=== PATIENT | male | born 1985 | race Caucasian/White ===

== ENCOUNTER 2017-11-11 06:53 | Day surgery (SDC) | payer MEDICAID ==
[~2017-11-11 06:53] MED LIST: Lactated Ringers 1,000 ML IV SCH; Lidocaine 1%/Sod Bicarbonate in NS 8.4% 1 ML Syringe IDERM PRN; Sodium Chloride 0.9% 10 ML Syringe FLUSH PRN
--- NOTE | 2017-11-11 07:25 | PCM.PREANE ---
Preanesthetic Assessment - Anesthesia/Transfusion/Family Hx Anesthesia History: Prior Anesthesia Without Reaction Family History of Anesthesia Reaction: No Transfusion History: No Prior Transfusion(s) - Review of Systems General: No Symptoms Pulmonary: No Symptoms Cardiovascular: No Symptoms Gastrointestinal: No Symptoms Neurological: Seizure (2003 last time) - Physical Assessment NPO Status Date: 11/10/17 NPO Status Time: 00:00 Pulse: 68 O2 Sat by Pulse Oximetry: 100 Respiratory Rate: 16 Blood Pressure: 136/77 Temperature: 36.6 C Height: 1.78 m Weight: 69.354 kg ASA Class: 2 Mental Status: Alert & Oriented x3 Dentition: Reports: Normal Dentition Thyro-Mental Finger Breadths: 3 Mouth Opening Finger Breadths: 3 ROM/Head Extension: Limited/Partial Lungs: Clear to Auscultation, Normal Respiratory Effort Cardiovascular: Regular Rate, Regular Rhythm - Allergies Allergies/Adverse Reactions: Allergies Allergy/AdvReac Type Severity Reaction Status Date / Time No Known Allergies Allergy Verified 11/10/17 14:45 - Blood Blood Available: No Product(s) Available: None - Anesthesia Plan Pre-Op Medication Ordered: None - Acknowledgements Anesthesia Type Planned: MAC Pt an Appropriate Candidate for the Planned Anesthesia: Yes Alternatives and Risks of Anesthesia Discussed w Pt/Guardian: Yes Pt/Guardian Understands and Agrees with Anesthesia Plan: Yes PreAnesthesia Questionnaire Cardiovascular History: Reports: None Respiratory History: Reports: None Gastrointestinal History: Reports: GERD, Other (See Below) Other Gastrointestinal History: dysphagia Genitourinary History: Reports: Urinary Incontinence [employer] History: Reports: None Musculoskeletal History: Reports: None Neurological History: Reports: Seizure, Other (See Below) Other Neuro History: organic brain syndrome, cervical dysphagia Psychiatric History: Reports: None Endocrine/Metabolic History: Reports: None Hematologic History: Reports: None Immunologic History: Reports: None Oncologic (Cancer) History: Reports: None Dermatologic History: Reports: None - Past Surgical History Head Surgeries/Procedures: Reports: None HEENT Surgical History: Reports: Myringotomy w Tube(s), Oral Surgery Cardiovascular Surgical History: Reports: None Respiratory Surgical History: Reports: None GI Surgical History: Reports: None Female Surgical History: Reports: None Male Surgical History: Reports: None Endocrine Surgical History: Reports: None Neurological Surgical History: Reports: None Musculoskeletal Surgical History: Reports: None Oncologic Surgical History: Reports: None - SUBSTANCE USE Smoking Status *Q: Never Smoker Recreational Drug Use History: No - HOME MEDS Home Medications: Home Meds Calcium Citrate Liquid 30 ml PO DAILY 11/10/17 [History] Cyanocobalamin (Vitamin B-12) [Vitamin B-12] 1,000 mcg SQ ASDIRECTED 11/10/17 [ History] Divalproex Sodium [Depakote Sprinkle] 125 mg PO DAILY 11/10/17 [History] Sertraline HCl 2.5 ml PO DAILY 11/10/17 [History] - CURRENT (IN HOUSE) MEDS Current Meds: Current Medications Lactated Ringer's (Ringers, Lactated) 1,000 mls @ 125 mls/hr IV ASDIRECTED HUNTER Stop: 11/11/17 23:00 Lidocaine/Sodium Bicarbonate (Buffered Lidocaine 1% In Ns 8.4%) 0.25 ml IDERM ONETIME PRN PRN Reason: Prior to IV Start Stop: 11/11/17 18:00 Sodium Chloride (Saline Flush) 10 ml FLUSH ASDIRECTED PRN PRN Reason: Keep Vein Open Stop: 11/11/17 18:00
[2017-11-11] MEDS ORDERED: Propofol 200 MG/20 ML SDV ONE (07:38)
[2017-11-11] MEDS ORDERED: Midazolam 1 MG/ML 2 ML SDV ONE (07:38)
[2017-11-11] MEDS ORDERED: fentaNYL 100 MCG/2 ML SDV ONE (07:38)
[2017-11-11] MEDS ORDERED: Lidocaine 1% 4 ML ONE (07:41)
--- NOTE | 2017-11-11 08:19 | PCM.OPNOTE ---
- General Post-Op/Procedure Note Date of Surgery/Procedure: 11/11/17 Operative Procedure(s): Esophagogastroduodenoscopy with biopsy Findings: Tight esophageal stricture likely reflux related at 25 cm from the anal verge. Pre Op Diagnosis: Dysphagia Post-Op Diagnosis: Distal esophageal stricture Anesthesia Technique: MAC, Moderate Sedation Primary Surgeon: Nicanor Aguayo Pathology: Esophageal biopsy 1 EBL in mLs: 0 Complications: None Condition: Good Free Text/Narrative:: After adequate IV sedation and analgesia was obtained with monitoring the patient was placed on his left side. Through a bite-block lubricated upper endoscope was inserted into the esophagus and advanced towards the stomach. At 25 cm from the incisors there was a tight circumferential stricture. This would not allow passage of the adult scope. I then switched to the pediatric upper endoscope and the stricture was too tight to allow for passage of the pediatric scope. There was some scope trauma on the attempt. I took one biopsy for histopathologic evaluation. The proximal esophagus above the stricture had no stasis changes. On extubation the vocal cords were visualized and were grossly normal. [employer] Legal Assistant photographs were taken for the patient and for the medical record.
--- NOTE | 2017-11-11 10:09 | PCM48HPAN ---
Post Anesthesia Note - EVALUATION WITHIN 48HRS OF ANESTHETIC Vital Signs in Normal Range: Yes Patient Participated in Evaluation: Yes Respiratory Function Stable: Yes Airway Patent: Yes Cardiovascular Function Stable: Yes Hydration Status Stable: Yes Pain Control Satisfactory: Yes Nausea and Vomiting Control Satisfactory: Yes Mental Status Recovered: Yes Pulse Rate: 68 Resp Rate: 18 Temperature: 36.6 C Blood Pressure: 136/77
== END 2017-11-11 08:59 | disposition home or self-care (01) ==
LOC: JD.SDS 06:53
PROVIDERS: ATTEND Surgery
DX: K22.2 Esophageal obstruction (principal); K21.9 Gastro-esophageal reflux disease without esophagitis; Z79.899 Other long term (current) drug therapy
CPT/HCPCS: 43239; J2001; J2250; J3010; J7120; J2704